=== PATIENT | female | born 1990 | race Two or more races ===

== ENCOUNTER 2022-02-25 18:23 | Emergency (ER) | payer MEDICAID, OTHER ==
[~2022-02-25] VITALS: Ht 149.9 cm; Wt 50.0 kg
[2022-02-25] MEDS ORDERED: methylPREDNISolone SOD SUCC 125 MG/2 ML VL IM ONE (22:30)
[2022-02-25] MEDS ORDERED: KETOROLAC TROMETH 30 MG/ML 1ML VIAL IM ONE (22:30)
[2022-02-25] MEDS ORDERED: CYCL-837 PO (22:31)
[2022-02-25] MEDS ORDERED: DICL-163 PO (22:31)
[2022-02-26 01:28] VITALS: BP 118/70
== END 2022-02-26 01:30 | disposition home or self-care (01) ==
LOC: ER 18:23
DX: M25.511 Pain in right shoulder (principal); R07.89 Other chest pain
CPT/HCPCS: 73030; 96372; 99284; J1885; J2930